=== PATIENT | female | born 1995 | race Hispanic/Latino ===

== ENCOUNTER 2018-02-07 12:40 | Emergency (ER) | payer SELFPAY ==
[~2018-02-07 12:40] MED LIST: LEVO1TAB79 PO
[2018-02-07 14:00] LABS: APPEARANCE,URINE Clear (CLEAR); BILIRUBIN,URINE Negative (NEGATIVE); COLOR,URINE Yellow (YELLOW); GLUCOSE, URINE (UA) Negative (NEGATIVE); KETONES,URINE Negative (NEGATIVE); LEUKOCYTE ESTERASE ,URINE Trace (NEGATIVE); NITRATE,URINE Negative (NEGATIVE); OCCULT BLOOD,URINE Small (NEGATIVE); PROTEIN,URINE Negative (NEGATIVE); UROBILINOGEN,URINE 0.2 mg/dL (0.2-1.0)
[2018-02-07 14:03] LABS: HCG,QUAL RESULT NEGATIVE (NEGATIVE)
[2018-02-07 14:36] LABS: BACTERIA,URINE Rare /HPF (None Seen); WBC,URINE 0-1 /HPF (0-1)
[2018-02-07] MEDS ORDERED: ORPHENADRINE CITRATE 30 MG/ML ML ONE (14:36)
[2018-02-07] MEDS ORDERED: ACETAMINOPHEN 325 MG TAB ONE (14:36)
== END 2018-02-07 15:16 | disposition home or self-care (01) ==
LOC: EDH 12:40
DX: M62.830 Muscle spasm of back (principal); M54.5 Low back pain; Z91.041 Radiographic dye allergy status; Z88.6 Allergy status to analgesic agent
CPT/HCPCS: 72100; 81001; 81025; 96372; 99285; J2360

== ENCOUNTER → 2024-02-20 | Outpatient (CLI) | payer BC | END | disposition home or self-care (01) | LOC: RAH 11:35 | PROVIDERS: ATTEND Internal Medicine | DX: R92.322 Mammographic fibroglandular density, left breast (principal); N63.20 Unspecified lump in the left breast, unspecified quadrant | CPT/HCPCS: 76641 ==

== ENCOUNTER → 2024-04-11 | Outpatient (CLI) | payer BC ==
[~2024-04-11] MED LIST changes: +CEPH500T PO
== END | disposition home or self-care (01) ==
LOC: RAH 09:40
PROVIDERS: ATTEND Internal Medicine
DX: O16.9 Unspecified maternal hypertension, unspecified trimester (principal); I70.1 Atherosclerosis of renal artery; Z3A.00 Weeks of gestation of pregnancy not specified
CPT/HCPCS: 76770; 93975